=== PATIENT | female | born 1940 | race Caucasian/White ===

== ENCOUNTER 2022-05-09 09:08 | Emergency (ER) | payer OTHER, BC ==
--- NOTE | 2022-05-09 09:29 | NUR ---
Pt brought in by [facility]. Mechanical fall occurred this morning in the patient home. Patient states was asleep on a low positioned couch; Upon rising pt knees "gave out". Pt states hit posterior head, no LOC, tissue swelling upon posterior cranium. Pt states past medical history HTN, Diabetes and bilateral knee joint condition.
[2022-05-09 09:43] LABS: BASOPHILS % (AUTO) 0.5 % (0.0-2.0); EOSINOPHILS # (AUTO) 0.5 K/uL (0.0-0.4); HEMATOCRIT 35.3 % (36-48); HEMOGLOBIN 11.6 g/dL (12.0-16.0); LYMPHOCYTES # (AUTO) 1.7 K/uL (1.0-5.5); MEAN CORPUSCULAR HEMOGLOBIN 28 pg (27-31); MEAN CORPUSCULAR HGB CONC 33 % (32-36); MEAN CORPUSCULAR VOLUME 86 fL (79.0-98.0); MONOCYTES # (AUTO) 0.8 K/uL (0.0-1.0); MONOCYTES % (AUTO) 8.4 % (1.7-9.3); NEUTROPHILS # (AUTO) 6.5 K/uL (1.8-7.7); NEUTROPHILS % (AUTO) 68.1 % (40.0-70.0); PLATELET COUNT (AUTO) 434 K/uL (130-430); RED BLOOD CELL COUNT(AUTO) 4.11 MIL/uL (4.2-6.2); RED CELL DISTRIBUTION WIDTH 14.6 % (9.0-15.0); WHITE BLOOD COUNT (AUTO) 9.6 K/uL (4.8-10.8)
--- NOTE | 2022-05-09 09:45 | NUR ---
EKG completed per tech. Godwin.
--- NOTE | 2022-05-09 09:46 | NUR ---
Blood specimen collected per customer service and sales consultant.
--- NOTE | 2022-05-09 09:56 | NUR ---
Pt son Brad is bedside states patient was assisted by caregiver.
[2022-05-09 10:19] LABS: ANION GAP 9 (5-15); CALCIUM 8.7 mg/dL (8.4-11.0); CHLORIDE 104 mmol/L (98-107); CREATININE 1.59 mg/dL (0.55-1.30); GLUCOSE 149 mg/dL (70-99); UREA NITROGEN, BLOOD 36 mg/dL (8-21)
[2022-05-09 10:26] LABS: ALANINE AMINOTRANSFERASE 12 U/L (12-78); ALBUMIN 2.6 g/dL (3.4-4.8); ASPARTATE AMINOTRANSFERASE 16 U/L (10-37); TOTAL BILIRUBIN 0.6 mg/dL (0.0-1.0)
--- NOTE | 2022-05-09 13:27 | NUR ---
Contacted dial [facility] ride transport services given ETA [id number] for wheel chair assistance.
--- NOTE | 2022-05-09 13:34 | NUR ---
Pt assisted to bedpan for void, tolerated well.
--- NOTE | 2022-05-09 13:34 | NUR ---
Pt served food diabetic tray .
--- NOTE | 2022-05-09 14:00 | NUR ---
Pt assisted with bedpan to urinate, cleansed and dried. Pt transferred to wheelchair with assistance. Pt bears weight does not take a step. slow pivot to chair with assistance.
--- NOTE | 2022-05-09 14:05 | NUR ---
Patient given written and verbal discharge instructions and verbalizes understanding. ER MD discussed with patient the results and treatment provided. Patient in stable condition. ID arm band removed. Patient educated on pain management and to follow up with PMD. Opportunity for questions provided and answered. Medication side effect fact sheet provided.
[2022-05-09 17:05] VITALS: BP_SYST 138
== END 2022-05-09 14:06 | disposition home or self-care (01) ==
LOC: SED 09:08
DX: S83.422A Sprain of lateral collateral ligament of left knee, initial encounter (principal); S93.402A Sprain of unspecified ligament of left ankle, initial encounter; Z79.899 Other long term (current) drug therapy; W19.XXXA Unspecified fall, initial encounter; Y93.89 Activity, other specified; Y92.89 Other specified places as the place of occurrence of the external cause; Y99.8 Other external cause status
CPT/HCPCS: 36415; 73564; 80053; 82550; 83605; 84484; 85025; 93005; 99285